=== PATIENT | male | born 1955 | race Caucasian/White ===

== ENCOUNTER 2020-01-16 07:04 | Day surgery (SDC) | payer BC ==
[~2020-01-16 07:04] MED LIST: Bupivacaine 0.5%/EPINEPHrine 1:200,000 50 ML MDV ONE
[2020-01-16] MEDS ORDERED: Rocuronium 50 MG/5 ML Vial ONE (07:40)
[2020-01-16] MEDS ORDERED: Neostigmine Methylsulfate 1 MG/ML 5 ML Syringe ONE (07:40)
[2020-01-16] MEDS ORDERED: Succinylcholine 200 MG/10 ML MDV ONE (07:40)
[2020-01-16] MEDS ORDERED: Ondansetron 4 MG/2 ML SDV ONE (07:40)
[2020-01-16] MEDS ORDERED: Propofol 200 MG/20 ML SDV ONE (07:40)
[2020-01-16] MEDS ORDERED: Dexamethasone 4 MG/ML SDV ONE (07:40)
[2020-01-16] MEDS ORDERED: Glycopyrrolate 0.2 MG/ML 5 ML MDV ONE (07:40)
[2020-01-16] MEDS ORDERED: fentaNYL 250 MCG/5 ML SDV ONE (07:41)
[2020-01-16] MEDS ORDERED: Dextrose 5%-Lactated Ringers 1,000 ML IV SCH (07:45)
[2020-01-16] MEDS ORDERED: Meropenem 500 MG in Sodium Chloride 0.9% 50 ML IV ONE (08:15)
[2020-01-16] MEDS ORDERED: Meropenem 500 MG SDV ONE (08:43)
[2020-01-16] MEDS ORDERED: Clindamycin Phosphate 900 MG in Sodium Chloride 0.9% 100 ML IV ONE (09:00)
[2020-01-16] MEDS ORDERED: Naloxone 0.4 MG/ML SDV ONE (09:58)
[2020-01-16] MEDS ORDERED: oxyCODONE 5 MG Tab PO PRN (10:50)
--- NOTE | 2020-01-21 09:41 | OR ---
DATE OF PROCEDURE: 01/16/2020 SURGEON: Faraz Hutson MD PREOPERATIVE DIAGNOSIS: Necrotizing infection to left buttock. POSTOPERATIVE DIAGNOSIS: Necrotizing infection to left buttock extending into perineum, involving skin and subcutaneous tissue with superficially the gluteus musculature. OPERATIVE PROCEDURE: Debridement of necrotizing infection to left buttock extending into the perineum, including excision of necrotic skin, subcutaneous tissue, and superficially fascia and musculature of gluteus muscles ([id number]). ANESTHESIA: General. INDICATION FOR PROCEDURE: A 64-year-old morbidly obese male presenting with an abscess present over the left buttock. The patient was seen on 01/13/20 and started on Septra orally. Cultures of this did show MRSA. The plan at this point is to proceed with debridement of this. The patient would like to have this done as an outpatient and is aware that, if we see quite more extensive resection that might need an early second look, we might need to keep him overnight at least or longer. Otherwise, the potential risks including bleeding, infection, likelihood that a large amount of soft tissue would be removed requiring a lengthy healing period, and possible closure with flaps and such were gone over, along with the possibility of cardiopulmonary, septic, or hemorrhagic complications leading to , and the patient wishes to proceed. DETAILS OF PROCEDURE: The patient was taken to the operating room and placed in a supine position. After general endotracheal anesthesia was induced, he was then placed into the prone position. The left buttock, perineum, and surrounding areas were then prepped and draped. A wide [id number] incision across the buttock was then made and carried down through the skin and subcutaneous tissue. An initial plane immediately showed some continued soft tissue necrosis extending into the perineum. This was then excised, along with the area of necrotic tissue. This extended down to the level of the gluteus musculature with some of the gluteus muscle fascia and a scant amount of muscle being excised as well. At that point, all areas appeared to be viable with fatty tissue being soft and non-infected, and the skin at that point slightly indurated, but not grossly infected. Intraoperative cultures were obtained x2, and the wound was then packed with Zyvox and meropenem-containing gauze, and the patient was taken to the recovery room in satisfactory condition. The patient, at this point, wished to go home with his , who is comfortable with dressing change, and he also has an RN gentleman who is staying with him at this time, who is comfortable with the dressing changes, and will be discharged home with twice a day dressing changes to begin tomorrow. He is given an additional week of Septra DS, and the was instructed that if he develops any signs of sepsis, fever, problems with blood sugars getting more out of control than normal, any lethargy or general illness appears, he should be reporting to the emergency room. Certainly if there is any further dying off of any other tissue or purulence developing, that should prompt a call or presentation to the emergency room. Otherwise, we will see the patient back next Monday for recheck. Faraz Hutson MD /[phone]
== END 2020-01-16 11:45 | disposition home or self-care (01) ==
LOC: JP.SDS 07:04
PROVIDERS: ATTEND Surgery
DX: L02.31 Cutaneous abscess of buttock (principal); L03.317 Cellulitis of buttock; B95.62 Methicillin resistant Staphylococcus aureus infection as the cause of diseases classified elsewhere; I96 Gangrene, not elsewhere classified; L90.5 Scar conditions and fibrosis of skin; G47.33 Obstructive sleep apnea (adult) (pediatric); E66.01 Morbid (severe) obesity due to excess calories; E11.9 Type 2 diabetes mellitus without complications; Z11.59 Encounter for screening for other viral diseases; Z68.45 Body mass index [BMI] 70 or greater, adult; Z88.0 Allergy status to penicillin; Z79.4 Long term (current) use of insulin
CPT/HCPCS: 11006; 36415; 80053; 83735; 84100; 85027; 87070; 87075; 87077; 87186; 87205; 87635; 88304; 93005; 93010; A9270; J0330; J1100; J2020; J2185; J2310; J2405; J2704; J2710; J3010; J3490; J7050; J7121; U0002